=== PATIENT | male | born 1980 | race Asian ===

== ENCOUNTER 2022-07-02 18:22 | Emergency (ER) | payer BC ==
[~2022-07-02] VITALS: Ht 188 cm; Wt 82.6 kg
[2022-07-02 18:44] VITALS: BP 146/95
[2022-07-02] MEDS ORDERED: HYDROCODONE/APAP 10/325MG TABLET ONE (19:14)
[2022-07-02] MEDS ORDERED: LIDOCAINE HCL/PF 1% 30 ML VIAL TP ONE (19:30)
[2022-07-02] MEDS ORDERED: HYDROCODONE/APAP 10/325MG TABLET PO ONE (19:30)
[2022-07-02] MEDS ORDERED: LIDOCAINE HCL/MPF 1% 30 ML VIAL IJ ONE (19:32)
--- NOTE | 2022-07-02 20:00 | NUR ---
FINGER SPLINT APPLIED
[2022-07-02] MEDS ORDERED: HYDR-4303 PO (20:03)
[2022-07-02] MEDS ORDERED: IBUP-1955 PO (20:03)
--- NOTE | 2022-07-02 20:17 | NUR ---
Patient discharged to home in stable condition. Written and verbal after care instructions given. Patient verbalizes understanding of instruction.
== END 2022-07-02 20:15 | disposition home or self-care (01) ==
LOC: ER 19:13
DX: S62.610A Displaced fracture of proximal phalanx of right index finger, initial encounter for closed fracture (principal); V49.69XA Unspecified car occupant injured in collision with other motor vehicles in traffic accident, initial encounter; Y93.89 Activity, other specified; Y92.413 State road as the place of occurrence of the external cause; Y99.8 Other external cause status
CPT/HCPCS: 99284; 26725; 73130; J3490 ×2